=== PATIENT | male | born 1965 | race Caucasian/White ===

== ENCOUNTER 2017-01-30 17:26 | Emergency (ER) | payer OTHER ==
[~2017-01-30] VITALS: Ht 172.7 cm; Wt 100.0 kg
[2017-01-30 17:35] VITALS: BP 155/95; PULSE 100; RESP 18; O2SAT 98
[2017-01-30 19:24] VITALS: BP 159/86; PULSE 90; RESP 16; O2SAT 95
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
--- NOTE | 2017-01-30 20:44 | DRSVH ---
PROCEDURE: X-RAY CHEST, TWO VIEWS ([id number]) INDICATIONS: neck injury TECHNIQUE: 2 views of the chest were acquired. COMPARISON: None. FINDINGS: Surgical changes and devices: None. Lungs and pleura: No pleural effusions or pneumothorax. Lungs are clear. Mediastinum: Mediastinal contours are normal. Heart size is normal. Bones and chest wall: No suspicious bony abnormalities. Soft tissues appear unremarkable. IMPRESSION: No acute cardiopulmonary findings. Dictated by: Karyna Miranda M.D. on 01/30/2017 at 20:42 Approved by: Karyna Miranda M.D. on 01/30/2017 at 20:42
--- NOTE | 2017-01-30 20:46 | DRSVH ---
PROCEDURE: X-RAY CERVICAL SPINE, 2 OR 3 VIEWS INDICATIONS: injury TECHNIQUE: 3 view(s) of the cervical spine were acquired. COMPARISON: None. FINDINGS: Bones: No fractures or dislocations to the C6-7 level. The lateral masses of C1 appear intact on th e odontoid view. No suspicious bony lesions. Mild degenerative changes are present in the lower cer vical spine. Soft tissues: No prevertebral soft tissue swelling. IMPRESSION: Mild degenerative change. No acute wedge compression deformity. If there is high clinical suspicion for occult cervical spine injury, CT of the cervical spine is rec ommended. Dictated by: Karyna Miranda M.D. on 01/30/2017 at 20:42 Approved by: Karyna Miranda M.D. on 01/30/2017 at 20:44
--- NOTE | 2017-01-30 20:47 | DRSVH ---
PROCEDURE: X-RAY LUMBAR SPINE, 2 OR 3 VIEW INDICATIONS: back pain TECHNIQUE: 3 views of the lumbar spine were acquired. COMPARISON: None. FINDINGS: Bones: 5 [id number] vertebrae are present. There is normal bony alignment. No vertebral body c ompression fractures. Patient is status post posterior fusion and discectomy from L4-S1. No suspiciou s bony lesions. Soft tissues: Overlying bowel gas pattern is normal. No suspicious soft tissue calcifications. IMPRESSION: No acute lumbar spine injury. Dictated by: Karyna Miranda M.D. on 01/30/2017 at 20:44 Approved by: Karyna Miranda M.D. on 01/30/2017 at 20:45
[2017-01-30] MEDS ORDERED: HYDR-3825 PO (21:08)
[2017-01-30 21:14] VITALS: BP 137/86; PULSE 68; RESP 18; O2SAT 97
== END 2017-01-30 21:15 | disposition home or self-care (01) ==
LOC: EDUNIT# 17:26 → EDBD 17:26 → SED 17:26
DX: S16.1XXA Strain of muscle, fascia and tendon at neck level, initial encounter (principal); S20.219A Contusion of unspecified front wall of thorax, initial encounter; V43.62XA Car passenger injured in collision with other type car in traffic accident, initial encounter; Y93.9 Activity, unspecified; Y92.410 Unspecified street and highway as the place of occurrence of the external cause; Y99.8 Other external cause status; I10 Essential (primary) hypertension
CPT/HCPCS: 71020; 72040; 72100; 96372; 99284; J1885